=== PATIENT | male | born 1950 | race Two or more races ===

== ENCOUNTER 2018-12-12 14:21 | Outpatient (CLI) | payer MEDICARE, MEDICAID ==
[~2018-12-12] VITALS: Ht 167.6 cm; Wt 93.4 kg
[2018-12-12 14:30] VITALS: BP 134/99
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
[2018-12-13] MEDS ORDERED: FLOMAX0.4 MG ORAL (09:33)
[2018-12-13] MEDS ORDERED: VITAMIN B-1100 MG ORAL (09:33)
[2018-12-13] MEDS ORDERED: MIRTAZAPINE15 MG ORAL (09:33)
[2018-12-13] MEDS ORDERED: ASPIRIN EC81 MG ORAL (09:33)
[2018-12-13] MEDS ORDERED: XANAX0.5 MG ORAL (09:33)
[2018-12-13] MEDS ORDERED: VITAMIN B-12500 MCG ORAL (09:33)
[2018-12-13] MEDS ORDERED: FOLIC ACID0.8 M1 PO (09:33)
[2018-12-13] MEDS ORDERED: LEXAPRO10 MG ORAL (09:33)
[2018-12-13] MEDS ORDERED: LUMIGAN2.5 ML BOTH EYES (09:33)
== END 2018-12-12 16:21 | disposition home or self-care (01) ==
LOC: PAN 14:21
DX: R10.9 Unspecified abdominal pain (principal); G47.30 Sleep apnea, unspecified; F32.9 Major depressive disorder, single episode, unspecified; K21.9 Gastro-esophageal reflux disease without esophagitis; I10 Essential (primary) hypertension; Z86.19 Personal history of other infectious and parasitic diseases; Z89.431 Acquired absence of right foot; Z86.010 Personal history of colon polyps

== ENCOUNTER 2018-12-14 07:35 | Day surgery (SDC) | payer MEDICARE, MEDICAID ==
[2018-12-14] VITALS (9 sets, daily range): BP systolic 149–167; BP diastolic 77–108
[~2018-12-14] VITALS: Ht 167.6 cm; Wt 92.1 kg
[~2018-12-14 07:35] MED LIST: ASPIRIN EC81 MG ORAL; FLOMAX0.4 MG ORAL; FOLIC ACID0.8 M1 PO; LEXAPRO10 MG ORAL; LUMIGAN2.5 ML BOTH EYES; MIRTAZAPINE15 MG ORAL; VITAMIN B-1100 MG ORAL; VITAMIN B-12500 MCG ORAL; XANAX0.5 MG ORAL
[2018-12-14] MEDS ORDERED: Lidocaine 1% MPF 10mg/ml 5ml ONE (09:00)
[2018-12-14] MEDS ORDERED: Midazolam 2mg/2ml Inj ONE (09:00)
[2018-12-14] MEDS ORDERED: Labetalol 5mg/ml 20ml vial IV ONE (09:00)
[2018-12-14] MEDS ORDERED: Propofol 200mg/20ml IV ONE (09:00)
--- NOTE | 2018-12-14 09:25 | Pre-Procedure Note/Attestation ---
Pre-Procedure Note/Attestation Complete Prior to Procedure Planned Procedure: not applicable Procedure Narrative: colonoscopy Indications for Procedure Pre-Operative Diagnosis: h/o colon polyps Attestation I attest that I discussed the nature of the procedure; its benefits; risks and complications; and alternatives (and the risks and benefits of such alternatives ), prior to the procedure, with the patient (or the patient's legal patient accounting representative). I attest that, if there was a reasonable possibility of needing a blood transfusion, the patient (or the patient's legal patient accounting representative) was given the [facility] standardized written summary, pursuant to the [employer] [place] Blood Safety Act ([place] Health and Safety Code # 1645, as amended). I attest that I re-evaluated the patient just prior to the surgery and that there has been no change in the patient's H&P, except as documented below: Tu Olguin MD Dec 14, 2018 09:25
--- NOTE | 2018-12-14 09:25 | Short Stay Surgery H&P ---
History of Present Illness History of Present Illness Chief Complaint see recent office note HPI Abe Hurd is a 68 year old male who was admitted on for Hepatitis, Abdominal Pain, Bloating Patient History Allergies: Coded Allergies: No Known Allergies (Unverified , 12/13/18) Medication History Scheduled Bimatoprost (Lumigan), 1 DROP BOTH EYES DAILY, (Reported) Cyanocobalamin (Vitamin B-12)* (Vitamin B-12*), 1,000 MCG ORAL DAILY, (Reported) Folic Acid (Folic Acid), 0.8 MG PO DAILY, (Reported) Tamsulosin HCl (Flomax), 0.4 MG ORAL DAILY, (Reported) Thiamine Hcl* (Vitamin B-1*), 100 MG ORAL DAILY, (Reported) Discontinued Medications Alprazolam* (Xanax*), 0.5 MG ORAL PRN, (Reported) Discontinued Reason: Medication dose changed Aspirin Ec* (Aspirin Ec*), 81 MG ORAL DAILY, (Reported) Discontinued Reason: Pt stopped taking med Escitalopram Oxalate* (Lexapro*), 10 MG ORAL PRN, (Reported) Discontinued Reason: MD discontinued med Mirtazapine* (Remeron*), 15 MG ORAL BEDTIME, (Reported) Discontinued Reason: Pt stopped taking med Physical Exam Vital Signs Last Vital Signs Date Time Temp Pulse Resp B/P (MAP) Pulse Ox O2 Delivery O2 Flow Rate FiO2 12/14/18 09:19 98.0 68 20 167/108 96 Room Air Plan Attestation Are the patient's medical conditions optimized for surgery? Tu Olguin MD Dec 14, 2018 09:25
--- NOTE | 2018-12-14 11:36 | Endoscopy Procedure Note ---
Endoscopy Procedure Note General Indication for Procedure: COLON POLYPS Procedures Performed: colonoscopy Operative Findings/Diagnosis: 11 POLYPS Specimen: yes Pt Tolerated Procedure Well: Yes Estimated Blood Loss: none Anesthesia Anesthesiologist: KRISTAL Anesthesia: MAC Inserted Devices Implant(s) used?: No Quality Quality of Bowel Preparation: Good Did scope reach the cecum?: Yes Was there any complications?: No GI Core Measures 50 yrs or older w/o bx or poly: No 10yrs. F/U recommended: Yes If not recommended, why?: Above average risk 18 years or older w/prev. colo: Yes <3yrs. since last colonoscopy: No Tu Olguin MD Dec 14, 2018 11:36
--- NOTE | 2018-12-14 18:01 | Procedure Note ---
DATE OF PROCEDURE: 12/14/2018 SURGEON: Tu Olguin M.D. REFERRING PHYSICIAN: Nate Lay D.O. PROCEDURE: Colonoscopy with snare polypectomy and biopsy. ANESTHESIA: Per Ron CHIRINOS. INSTRUMENT: Olympus adult flexible colonoscope. INDICATION: History of colonic polyps. REASON FOR PROCEDURE: The procedure, risks, benefits, and possible consequences, including hemorrhage, aspiration, perforation and infection, and alternative treatments, were explained to the patient/legal guardian by Dr. Tu Olguin and the patient/legal guardian understood and accepted these risks. PROCEDURE IN DETAIL: After informed consent was obtained and the patient was adequately sedated, first rectal exam was performed, which was normal. Then, the scope was advanced from the rectum into the cecum documented by appendix orifice, ileocecal valve, and right upper quadrant palpation. Quality of prep was very good. The patient had one diminutive polyp in the ascending colon, removed with the cold biopsy forceps technique. The patient had 8 polyps in the transverse colon, some of them removed with cold, some of them with hot snare polypectomy. The largest one measured roughly about 7 to 8 mm. The patient also had two more polyps in the descending colon removed with a hot snare polypectomy technique. Retroflexion of rectum showed evidence of internal hemorrhoids. SUMMARY OF FINDINGS: Total of 11 colonic polyps removed, see above for details. RECOMMENDATIONS: 1. Follow up pathology. 2. We recommend repeat colonoscopy in one year given more than 10 polyps. I want to thank Dr. Nate Lay for this kind referral. Tu Olguin M.D. DR: TARA JOB#: [id number] CC: Nate Lay D.O.
--- NOTE | 2019-01-06 12:41 | Cardiology Report ---
APPROVED REPORT EKG Measurement Heart [id number] Normal sinus rhythm Nonspecific T wave abnormality Abnormal ECG
== END 2018-12-14 11:30 | disposition home or self-care (01) ==
LOC: GAS 07:35
DX: K63.5 Polyp of colon (principal); D12.2 Benign neoplasm of ascending colon; D12.4 Benign neoplasm of descending colon; D12.3 Benign neoplasm of transverse colon; Z86.010 Personal history of colon polyps; K64.8 Other hemorrhoids; R14.0 Abdominal distension (gaseous); R10.9 Unspecified abdominal pain; Z79.899 Other long term (current) drug therapy
CPT/HCPCS: 45380; 45385; 93005; J2250; J2704; 94003; 94150

== ENCOUNTER 2018-12-14 07:59 | Outpatient (CLI) | payer MEDICARE, MEDICAID ==
[~2018-12-14] VITALS: Ht 30.5 cm; Wt 0.5 kg
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
--- NOTE | 2018-12-14 09:40 | Immediate Post-Op Evaluation ---
Immediate Post-Op Evalulation Immediate Post-Op Evalulation Procedure: colonoscopy Date of Evaluation: Dec 14, 2018 Time of Evaluation: 10:12 IV Fluids: NSS 500 ml Blood Products: 0 Estimated Blood Loss: 0 Urinary Output: 0 Blood Pressure Systolic: 152 Blood Pressure Diastolic: 79 Pulse Rate: 70 Respiratory Rate: 18 O2 Sat by Pulse Oximetry: 99 Temperature (Fahrenheit): 97.7 Pain Score (1-10): 0 Nausea: No Vomiting: No Complications none noted Patient Status: awake, reacts, patent, none Hydration Status: adequate Given Within 1 Hr of Incision: Asia Chaparro CRNA Dec 14, 2018 09:40
--- NOTE | 2018-12-14 09:41 | 48 Hour Post Anesthesia Eval ---
Post Anesthesia Evaluation Procedure: colonoscopy Date of Evaluation: Dec 14, 2018 Time of Evaluation: 11:25 Blood Pressure Systolic: 157 0: 89 Pulse Rate: 70 Respiratory Rate: 18 Temperature (Fahrenheit): 97.7 O2 Sat by Pulse Oximetry: 99 Airway: patent Nausea: No Vomiting: No Pain Intensity: 0 Hydration Status: adequate Cardiopulmonary Status: WNL Mental Status/LOC: patient returned to baseline Follow-up care needed: patient intructions given Asia Velasquez CRNA Dec 14, 2018 09:40
[2018-12-14] MEDS ORDERED: fentaNYL 100 mcg/2 mL IV PRN (09:45)
[2018-12-14 11:27] VITALS: BP 157/89
--- NOTE | 2018-12-14 11:46 | Diagnostic Imaging Report ---
Indication: Abdominal distention. Hepatitis C Technique: Grayscale and duplex Doppler imaging of the abdomen performed. Comparison: None Findings: The liver is unremarkable. No surface nodularity identified. Doppler interrogation of the main portal vein shows patency with hepatopedal, monophasic flow. There is no biliary ductal dilitation identified. The CBD measures 5 mm. The gallbladder is unremarkable. There are no gallstones or wall thickening identified. Sonographic rosenbaum's sign was negative per technologist. The demonstrated part of the pancreas, aorta and IVC show no abnormalities. Both kidneys appear unremarkable. There is a left renal cyst measuring 1.7 cm. There is no hydronephrosis. The spleen is normal in size, contour and echogenicity. There is no free fluid identified. IMPRESSION: No acute findings. Left renal cyst
== END 2018-12-14 09:59 | disposition home or self-care (01) ==
LOC: ULS 07:59
DX: R14.0 Abdominal distension (gaseous) (principal); N28.1 Cyst of kidney, acquired; Z86.19 Personal history of other infectious and parasitic diseases
CPT/HCPCS: 76700; G0463; 99202

== ENCOUNTER 2019-01-04 14:13 | Outpatient (CLI) | payer MEDICARE, MEDICAID ==
[2019-01-04 14:15] VITALS: BP 135/75
--- NOTE | 2019-01-04 14:48 | General Progress Note ---
Assessment/Plan Problem List: (1) Hepatitis C ICD Codes: B19.20 - Unspecified viral hepatitis C without hepatic coma SNOMED: 78922906 (2) Multiple polyps of sigmoid colon ICD Codes: D12.5 - Benign neoplasm of sigmoid colon SNOMED: 533829435 Assessment/Plan: repeat colonoscopy in one year Subjective ROS Limited/Unobtainable: Yes Allergies: Coded Allergies: No Known Allergies (Unverified , 12/13/18) Objective General Appearance: alert EENT: normal ENT inspection Neck: supple Cardiovascular: normal rate Respiratory/Chest: decreased breath sounds Abdomen: normal bowel sounds, non tender, soft Extremities: non-tender Tu Olguin MD Jan 04, 2019 14:48
== END 2019-01-04 16:13 | disposition home or self-care (01) ==
LOC: PAN 14:13
DX: B19.20 Unspecified viral hepatitis C without hepatic coma (principal); D12.5 Benign neoplasm of sigmoid colon
CPT/HCPCS: 99202